=== PATIENT | female | born 1955 | race African-American/Black ===

== ENCOUNTER 2017-04-09 16:58 | Inpatient (IN) | payer OTHER ==
[~2017-04-09] VITALS: Ht 170.2 cm; Wt 131.1 kg
[2017-04-09] MEDS ORDERED: METHYLPREDNISOLONE SOD SUCC 125 MG/2 ML VIAL IV ONE (17:30)
[2017-04-09] MEDS ORDERED: IPRATROPIUM/ALBUTEROL 0.5-3(2.5)MG/3ML NEB HHN ONE (17:30)
[2017-04-09 17:49] LABS: BASOPHILS % 0.7 % (0.0-2.0); EOSINOPHILS % 2.7 % (0.0-5.0); HEMATOCRIT. 33.1 % (36.0-48.0); HEMOGLOBIN. 10.6 g/dL (12.0-16.0); LYMPHOCYTES % 28.2 % (20.0-50.0); MEAN CORPUSCULAR HEMOGLOBIN 26.7 pg (28.0-32.0); MEAN CORPUSCULAR VOLUME 83.4 fL (81.0-99.0); MEAN PLATELET VOLUME 11.1 fl (7.4-10.4); MONOCYTES % 12.2 % (2.0-8.0); NEUTROPHILS % 56.2 % (40.0-76.0); PLATELET 156 x1000/uL (130-400); RED BLOOD CELL COUNT 3.97 mill/uL (4.2-5.4); RED CELL DISTRIBUTION WIDTH 15.2 % (11.6-14.6)
[2017-04-09 18:00] LABS: PARTIAL THROMBOPLASTIN TIME 27.8 sec (24.0-34.0); PROTHROMBIN TIME 10.6 sec
[2017-04-09 18:06] LABS: CARBON DIOXIDE 28 mEq/L (21-32); CHLORIDE 111 mEq/L (98-107); TROPONIN I < 0.02 ng/mL (0.00-0.04)
[2017-04-09] MEDS ORDERED: DEXTROSE 50% WATER 50ML SYRINGE IV ONE ×2 (18:19→19:15)
[2017-04-09] MEDS ORDERED: FUROSEMIDE 40MG/4ML VIAL IVP ONE (19:15)
[2017-04-09] MEDS ORDERED: DOCUSATE SODIUM 100MG CAPSULE PO PRN (21:00)
[2017-04-09] MEDS ORDERED: IPRATROPIUM/ALBUTEROL 0.5-3(2.5)MG/3ML NEB INH PRN (21:00)
[2017-04-09] MEDS ORDERED: ONDANSETRON HCL 4MG/2ML VIAL IV PRN (21:00)
[2017-04-09] MEDS ORDERED: ACETAMINOPHEN 325MG TABLET PO PRN (21:00)
[2017-04-09] MEDS ORDERED: CLONIDINE 0.1MG TABLET PO PRN (21:00)
[2017-04-09] MEDS ORDERED: DEXTROSE 50% WATER 50ML SYRINGE IV PRN (21:00)
[2017-04-09] MEDS ORDERED: MAGNESIUM/ALUMINUM HYDROXIDE/SIMETHICONE 30ML UDC PO PRN (21:00)
[2017-04-09 21:30] VITALS: BP 145/91
[2017-04-09] MEDS: ENOXAPARIN 40MG/0.4ML SYR SUBCUT SCH (21:46)
[2017-04-09 22:18] VITALS: BP 145/91
[2017-04-09 22:51] LABS: CARBON DIOXIDE 29 mEq/L (21-32); CHLORIDE 108 mEq/L (98-107); CREATINE KINASE 170 IU/L (26-192); CREATINE KINASE MB FRACTION 2.3 ng/mL (0.5-3.6); TROPONIN I < 0.02 ng/mL (0.00-0.04)
[2017-04-09] MEDS ORDERED: ALPRAZOLAM 0.25 MG TABLET PO PRN (23:00)
[2017-04-09 23:11] LABS: BG CARBOXYHEMOGLOBIN 0.6 % (0.5-1.5); BG DEOXYHEMOGLOBIN 2.9 % (0.0-5.0); BG FRACTION INSPIRED OXYGEN 32; BG HCO3 ACT 24.6 mmol/L (22.0-26.0); BG METHEMOGLOBIN 0.3 % (0.0-1.5); BG OXYGEN SATURATION 97.1 % (92.0-98.5); BG OXYHEMOGLOBIN 96.2 % (94.0-97.0); BG PCO2 44.2 mmHg (35.0-45.0); BG PH 7.363 (7.350-7.450); BG PO2 100.1 mmHg (75.0-100.0); BG SAMPLE SITE RIGHT RADIAL; BG TOTAL HEMOGLOBIN 12.1 g/dL (12.0-18.0); BG VENT MODE NASAL CANNULA
[2017-04-09] MEDS: HYDROCODONE/ACETAMINOPHEN 5/325MG TABLET PO PRN (23:18)
[2017-04-09 23:39] LABS: CLARITY URINE CLEAR (CLEAR); COLOR URINE YELLOW (YELLOW); GLUCOSE URINE NEGATIVE (NEGATIVE); KETONES URINE NEGATIVE (NEGATIVE); LEUKOCYTE ESTERASE URINE 2+ (NEGATIVE); NITRITE URINE NEGATIVE (NEGATIVE); OCCULT BLOOD URINE NEGATIVE (NEGATIVE); PH URINE 5.5 (4.5-8.0); PROTEIN URINE NEGATIVE (NEGATIVE); SPECIFIC GRAVITY URINE 1.022 (1.005-1.030)
[2017-04-10] VITALS: BP 118/68
[2017-04-10 00:17] LABS: *AMPHETAMINES SCREEN URINE NEGATIVE (NEGATIVE); *BARBITURATES SCREEN URINE NEGATIVE (NEGATIVE); *BENZODIAZEPINES SCREEN URINE NEGATIVE (NEGATIVE); *COCAINE SCREEN URINE NEGATIVE (NEGATIVE); CANNABINOID URINE SCREEN NEGATIVE (NEGATIVE); METHADONE URINE SCREEN NEGATIVE (NEGATIVE); OPIATES URINE SCREEN PRESUMTIVE POSITIVE (NEGATIVE); PHENCYCLIDINE URINE SCREEN NEGATIVE (NEGATIVE)
[2017-04-10] MEDS: ZOLPIDEM TARTRATE 5MG TABLET PO PRN ×2 (01:35→21:38)
[2017-04-10] MEDS: METHYLPREDNISOLONE SOD SUCC 125 MG/2 ML VIAL IV SCH ×2 (01:35→10:00)
[2017-04-10 04:00] VITALS: BP 109/68
[2017-04-10 06:39] LABS: BASOPHILS % 0.1 % (0.0-2.0); HEMATOCRIT. 33.4 % (36.0-48.0); HEMOGLOBIN. 10.8 g/dL (12.0-16.0); LYMPHOCYTES % 8.8 % (20.0-50.0); MEAN CORPUSCULAR HEMOGLOBIN 27.1 pg (28.0-32.0); MEAN CORPUSCULAR VOLUME 83.7 fL (81.0-99.0); MEAN PLATELET VOLUME 10.8 fl (7.4-10.4); MONOCYTES % 1.9 % (2.0-8.0); NEUTROPHILS % 89.2 % (40.0-76.0); PLATELET 144 x1000/uL (130-400); RED BLOOD CELL COUNT 3.99 mill/uL (4.2-5.4); RED CELL DISTRIBUTION WIDTH 14.9 % (11.6-14.6)
[2017-04-10] MEDS: FUROSEMIDE 40MG/4ML VIAL IV SCH ×2 (07:03→17:38)
[2017-04-10 07:56] LABS: CREATINE KINASE 159 IU/L (26-192); CREATINE KINASE MB FRACTION 2.4 ng/mL (0.5-3.6); HDL CHOLESTEROL 85 mg/dL (40-59); LDL CHOLESTEROL 58 mg/dL (5-100); TROPONIN I < 0.02 ng/mL (0.00-0.04)
[2017-04-10] MEDS: ENOXAPARIN 40MG/0.4ML SYR SUBCUT SCH (08:27)
[2017-04-10 09:02] VITALS: BP 128/66
[2017-04-10 12:00] VITALS: BP 137/81
[2017-04-10] MEDS: HYDROCODONE/ACETAMINOPHEN 5/325MG TABLET PO PRN (13:53)
[2017-04-10] MEDS ORDERED: DEXTROSE 50% WATER 50ML SYRINGE IV PRN (14:00)
[2017-04-10 16:00] VITALS: BP 129/67
[2017-04-10] MEDS: CEFTRIAXONE 1 G PREMIX 50 ML IV SCH (16:51)
[2017-04-10] MEDS: METHYLPREDNISOLONE SOD SUCC 40 MG/ML VIAL IV SCH ×2 (17:07→23:30)
[2017-04-10] MEDS: BLOOD SUGAR DIAGNOSTIC STRIP TEST SCH ×2 (17:10→21:39)
[2017-04-10] MEDS: METFORMIN HCL 500MG TABLET PO SCH (17:37)
[2017-04-10] MEDS: INSULIN LISPRO 100 UNITS/ML SUBCUT SCH ×2 (17:40→21:50)
[2017-04-10 20:00] VITALS: BP 120/73
[2017-04-10] MEDS: BUDESONIDE 0.5MG/2ML NEB HHN SCH (20:44)
[2017-04-10] MEDS: IPRATROPIUM/ALBUTEROL 0.5-3(2.5)MG/3ML NEB HHN SCH (20:45)
[2017-04-10] MEDS: FLUTICASONE PROPIONATE 50MCG/SPRAY BOTTLE BOTHNSTRLS SCH (21:37)
[2017-04-10] MEDS: VERAPAMIL HCL 40MG TABLET PO SCH (21:38)
[2017-04-10] MEDS: ENOXAPARIN 30MG/0.3ML SYR SUBCUT SCH (21:42)
[2017-04-11] VITALS: BP 118/51
[2017-04-11] MEDS: IPRATROPIUM/ALBUTEROL 0.5-3(2.5)MG/3ML NEB HHN SCH ×4 (01:27→21:05)
[2017-04-11 04:00] VITALS: BP 127/71
[2017-04-11] MEDS: BLOOD SUGAR DIAGNOSTIC STRIP TEST SCH ×4 (05:55→21:01)
[2017-04-11] MEDS: INSULIN LISPRO 100 UNITS/ML SUBCUT SCH ×4 (06:02→21:04)
[2017-04-11] MEDS: VERAPAMIL HCL 40MG TABLET PO SCH ×3 (06:03→21:02)
[2017-04-11] MEDS: METFORMIN HCL 500MG TABLET PO SCH ×2 (06:03→17:47)
[2017-04-11] MEDS: FUROSEMIDE 40MG/4ML VIAL IV SCH ×2 (06:04→17:47)
[2017-04-11 06:20] LABS: BASOPHILS % 0.3 % (0.0-2.0); HEMATOCRIT. 35.3 % (36.0-48.0); HEMOGLOBIN. 11.3 g/dL (12.0-16.0); LYMPHOCYTES % 8.6 % (20.0-50.0); MEAN CORPUSCULAR HEMOGLOBIN 26.6 pg (28.0-32.0); MEAN PLATELET VOLUME 11.7 fl (7.4-10.4); MONOCYTES % 3.1 % (2.0-8.0); PLATELET 146 x1000/uL (130-400); RED BLOOD CELL COUNT 4.25 mill/uL (4.2-5.4); RED CELL DISTRIBUTION WIDTH 14.7 % (11.6-14.6)
[2017-04-11 08:00] VITALS: BP 117/68
[2017-04-11] MEDS: METHYLPREDNISOLONE SOD SUCC 40 MG/ML VIAL IV SCH (08:39)
[2017-04-11] MEDS: PANTOPRAZOLE SODIUM 40 MG/VIAL IV SCH (08:39)
[2017-04-11] MEDS: TRIAMTERENE/HYDROCHLOROTHIAZIDE 37.5/25MG CAPSULE PO SCH (08:39)
[2017-04-11] MEDS: FLUTICASONE PROPIONATE 50MCG/SPRAY BOTTLE BOTHNSTRLS SCH ×2 (08:40→20:57)
[2017-04-11] MEDS: ENOXAPARIN 30MG/0.3ML SYR SUBCUT SCH ×2 (08:40→20:58)
[2017-04-11] MEDS: HYDROCODONE/ACETAMINOPHEN 5/325MG TABLET PO PRN (09:35)
[2017-04-11 12:00] VITALS: BP 107/57
[2017-04-11] MEDS: CEFTRIAXONE 1 G PREMIX 50 ML IV SCH (15:27)
[2017-04-11 16:00] VITALS: BP 118/62
[2017-04-11] MEDS: PREDNISONE 20MG TABLET PO SCH (17:47)
[2017-04-11 20:00] VITALS: BP 129/72
[2017-04-11] MEDS: BUDESONIDE 0.5MG/2ML NEB HHN SCH (21:05)
[2017-04-11] MEDS: INSULIN DETEMIR UD 100 UNITS/ML SYR SUBCUT SCH (21:42)
[2017-04-12] VITALS: BP 139/69
[2017-04-12] MEDS: IPRATROPIUM/ALBUTEROL 0.5-3(2.5)MG/3ML NEB HHN SCH ×4 (01:55→20:57)
[2017-04-12 04:00] VITALS: BP 137/73
[2017-04-12] MEDS: VERAPAMIL HCL 40MG TABLET PO SCH ×3 (05:56→21:13)
[2017-04-12] MEDS: FUROSEMIDE 40MG/4ML VIAL IV SCH ×2 (06:32→17:26)
[2017-04-12] MEDS: BLOOD SUGAR DIAGNOSTIC STRIP TEST SCH ×4 (06:32→20:23)
[2017-04-12 06:46] LABS: BASOPHILS % 0.2 % (0.0-2.0); HEMATOCRIT. 36.9 % (36.0-48.0); HEMOGLOBIN. 11.8 g/dL (12.0-16.0); LYMPHOCYTES % 8.6 % (20.0-50.0); MEAN CORPUSCULAR HEMOGLOBIN 26.6 pg (28.0-32.0); MEAN CORPUSCULAR VOLUME 83.3 fL (81.0-99.0); MEAN PLATELET VOLUME 11.4 fl (7.4-10.4); MONOCYTES % 5.8 % (2.0-8.0); NEUTROPHILS % 85.4 % (40.0-76.0); PLATELET 159 x1000/uL (130-400); RED BLOOD CELL COUNT 4.42 mill/uL (4.2-5.4); RED CELL DISTRIBUTION WIDTH 14.8 % (11.6-14.6)
[2017-04-12] MEDS: INSULIN LISPRO 100 UNITS/ML SUBCUT SCH ×4 (06:58→20:35)
[2017-04-12] MEDS: METFORMIN HCL 500MG TABLET PO SCH ×2 (07:32→17:26)
[2017-04-12 08:00] VITALS: BP 129/66
[2017-04-12] MEDS: BUDESONIDE 0.5MG/2ML NEB HHN SCH ×2 (08:13→20:57)
[2017-04-12] MEDS: PREDNISONE 20MG TABLET PO SCH (08:13)
[2017-04-12] MEDS: PANTOPRAZOLE SODIUM 40 MG/VIAL IV SCH (08:13)
[2017-04-12] MEDS: TRIAMTERENE/HYDROCHLOROTHIAZIDE 37.5/25MG CAPSULE PO SCH (08:13)
[2017-04-12] MEDS: ENOXAPARIN 30MG/0.3ML SYR SUBCUT SCH (08:14)
[2017-04-12] MEDS: FLUTICASONE PROPIONATE 50MCG/SPRAY BOTTLE BOTHNSTRLS SCH ×2 (08:15→20:35)
[2017-04-12] MEDS: HYDROCODONE/ACETAMINOPHEN 5/325MG TABLET PO PRN ×2 (10:12→20:23)
[2017-04-12] MEDS: INSULIN DETEMIR UD 100 UNITS/ML SYR SUBCUT SCH ×2 (10:26→21:17)
[2017-04-12 12:00] VITALS: BP 105/63
[2017-04-12] MEDS: FAMOTIDINE 20MG TABLET PO SCH ×2 (12:11→20:17)
[2017-04-12] MEDS: CEFTRIAXONE 1 G PREMIX 50 ML IV SCH (15:58)
[2017-04-12 16:00] VITALS: BP 136/85
[2017-04-12 20:00] VITALS: BP 129/76
[2017-04-12] MEDS: GUAIFENESIN/CODEINE 100-10MG/5ML UDC PO PRN (20:18)
[2017-04-12] MEDS: ENOXAPARIN 40MG/0.4ML SYR SUBCUT SCH (20:18)
[2017-04-13] VITALS: BP 121/67
[2017-04-13] MEDS: IPRATROPIUM/ALBUTEROL 0.5-3(2.5)MG/3ML NEB HHN SCH ×3 (01:19→14:49)
[2017-04-13] MEDS: HYDROCODONE/ACETAMINOPHEN 5/325MG TABLET PO PRN ×3 (01:25→10:01)
[2017-04-13 04:00] VITALS: BP 130/80
[2017-04-13] MEDS: GUAIFENESIN/CODEINE 100-10MG/5ML UDC PO PRN (05:43)
[2017-04-13] MEDS: VERAPAMIL HCL 40MG TABLET PO SCH ×2 (05:44→13:56)
[2017-04-13] MEDS: FUROSEMIDE 40MG/4ML VIAL IV SCH (06:06)
[2017-04-13] MEDS: BLOOD SUGAR DIAGNOSTIC STRIP TEST SCH ×2 (06:06→11:29)
[2017-04-13] MEDS: INSULIN LISPRO 100 UNITS/ML SUBCUT SCH ×2 (06:16→12:10)
[2017-04-13 06:35] LABS: BASOPHILS % 0.5 % (0.0-2.0); EOSINOPHILS % 0.1 % (0.0-5.0); HEMATOCRIT. 39.1 % (36.0-48.0); HEMOGLOBIN. 12.7 g/dL (12.0-16.0); LYMPHOCYTES % 23.3 % (20.0-50.0); MEAN CORPUSCULAR HEMOGLOBIN 26.8 pg (28.0-32.0); MEAN CORPUSCULAR VOLUME 82.3 fL (81.0-99.0); MEAN PLATELET VOLUME 11.3 fl (7.4-10.4); MONOCYTES % 11.6 % (2.0-8.0); NEUTROPHILS % 64.5 % (40.0-76.0); PLATELET 174 x1000/uL (130-400); RED BLOOD CELL COUNT 4.75 mill/uL (4.2-5.4); RED CELL DISTRIBUTION WIDTH 14.5 % (11.6-14.6)
[2017-04-13] MEDS: METFORMIN HCL 500MG TABLET PO SCH (07:50)
[2017-04-13 08:00] VITALS: BP 111/62
[2017-04-13] MEDS ORDERED: PREDNISONE 20MG TABLET PO SCH (09:00)
[2017-04-13] MEDS: BUDESONIDE 0.5MG/2ML NEB HHN SCH (09:08)
[2017-04-13] MEDS: FLUTICASONE PROPIONATE 50MCG/SPRAY BOTTLE BOTHNSTRLS SCH (09:16)
[2017-04-13] MEDS: TRIAMTERENE/HYDROCHLOROTHIAZIDE 37.5/25MG CAPSULE PO SCH (09:17)
[2017-04-13] MEDS: ENOXAPARIN 40MG/0.4ML SYR SUBCUT SCH (09:17)
[2017-04-13] MEDS: FAMOTIDINE 20MG TABLET PO SCH (09:17)
[2017-04-13] MEDS: INSULIN DETEMIR UD 100 UNITS/ML SYR SUBCUT SCH (10:00)
[2017-04-13 12:03] VITALS: BP 118/70
[2017-04-13 15:28] VITALS: BP 118/70
[2017-04-13] MEDS: CEFTRIAXONE 1 G PREMIX 50 ML IV SCH (15:30)
[2017-04-13 16:00] VITALS: BP 126/74
== END 2017-04-13 18:23 | disposition home or self-care (01) | DRG 720 ==
LOC: ER 16:58 → 5WST 19:53 → ENRESERV 20:09
PROVIDERS: ADMIT Internal Medicine; ATTEND Internal Medicine
PROC: 5A09357 Assistance with Respiratory Ventilation, Less than 24 Consecutive Hours, Continuous Positive Airway Pressure (ICD-10-PCS; principal; 2017-04-10)
DX: A41.9 Sepsis, unspecified organism (principal); J96.00 Acute respiratory failure, unspecified whether with hypoxia or hypercapnia; I50.33 Acute on chronic diastolic (congestive) heart failure; E11.649 Type 2 diabetes mellitus with hypoglycemia without coma; E44.1 Mild protein-calorie malnutrition; I24.9 Acute ischemic heart disease, unspecified; J44.1 Chronic obstructive pulmonary disease with (acute) exacerbation; E66.01 Morbid (severe) obesity due to excess calories; D64.9 Anemia, unspecified; E78.5 Hyperlipidemia, unspecified; F41.9 Anxiety disorder, unspecified; G47.33 Obstructive sleep apnea (adult) (pediatric); G89.29 Other chronic pain; J32.9 Chronic sinusitis, unspecified; K21.9 Gastro-esophageal reflux disease without esophagitis; N39.0 Urinary tract infection, site not specified; W19.XXXA Unspecified fall, initial encounter; Z87.891 Personal history of nicotine dependence; Z88.2 Allergy status to sulfonamides; Z68.42 Body mass index [BMI] 45.0-49.9, adult; Y93.89 Activity, other specified; Y92.091 Bathroom in other non-institutional residence as the place of occurrence of the external cause; Y99.8 Other external cause status
CPT/HCPCS: 36415; 36600; 70450; 71010; 80048; 80053; 80061; 80305; 81001; 82375; 82550; 82553; 82805; 82962; 83036; 83690; 83735; 83880; 84443; 84484; 85025; 85379; 85610; 85730; 87086; 93005; 93306; 93970; 94640; 94660; 94664; 96374; 97162; 97530; 99285; C1893; C9113; J0696; J1650; J1815; J1940; J2405; J2920; J2930; J7050; J7512; J7620; J7626; A4315

== ENCOUNTER 2017-04-27 09:54 | Inpatient (IN) | payer OTHER ==
[~2017-04-27] VITALS: Ht 154.9 cm; Wt 141.5 kg
[2017-04-27] MEDS ORDERED: SODIUM CHLORIDE 0.9% 1,000 ML IV ONE (10:18)
[2017-04-27] MEDS ORDERED: DEXTROSE 50% WATER 50ML SYRINGE IV ONE ×2 (10:41→12:30)
[2017-04-27 10:45] LABS: BASOPHILS % 0.3 % (0.0-2.0); EOSINOPHILS % 0.8 % (0.0-5.0); HEMATOCRIT. 35.8 % (36.0-48.0); LYMPHOCYTES % 16.1 % (20.0-50.0); MEAN CORPUSCULAR HEMOGLOBIN 26.4 pg (28.0-32.0); MEAN CORPUSCULAR VOLUME 85.9 fL (81.0-99.0); MEAN PLATELET VOLUME 10.1 fl (7.4-10.4); MONOCYTES % 8.6 % (2.0-8.0); NEUTROPHILS % 74.2 % (40.0-76.0); PLATELET 131 x1000/uL (130-400); RED BLOOD CELL COUNT 4.16 mill/uL (4.2-5.4); RED CELL DISTRIBUTION WIDTH 15.6 % (11.6-14.6)
[2017-04-27 10:53] LABS: PROTHROMBIN TIME 10.8 sec
[2017-04-27 10:56] LABS: CHLORIDE 109 mEq/L (98-107)
[2017-04-27 11:02] LABS: CARBON DIOXIDE 26 mEq/L (21-32); TROPONIN I < 0.02 ng/mL (0.00-0.04)
[2017-04-27 11:24] LABS: BG BASE EXCESS -0.1 mmol/L (-2.0-2.0); BG CARBOXYHEMOGLOBIN 0.2 % (0.5-1.5); BG DEOXYHEMOGLOBIN 5.9 % (0.0-5.0); BG HCO3 ACT 27.4 mmol/L (22.0-26.0); BG METHEMOGLOBIN 0.4 % (0.0-1.5); BG OXYGEN SATURATION 94.1 % (92.0-98.5); BG OXYHEMOGLOBIN 93.5 % (94.0-97.0); BG PCO2 57.2 mmHg (35.0-45.0); BG PH 7.298 (7.350-7.450); BG PO2 77.3 mmHg (75.0-100.0); BG SAMPLE SITE RIGHT RADIAL; BG TOTAL HEMOGLOBIN 12.8 g/dL (12.0-18.0); BG VENT MODE ROOM AIR
[2017-04-27] MEDS ORDERED: DEXTROSE 50% WATER 50ML SYRINGE IV PRN ×2 (12:30→17:15)
[2017-04-27] MEDS ORDERED: BUDESONIDE 0.5MG/2ML NEB HHN SCH (14:45)
[2017-04-27] MEDS ORDERED: MAGNESIUM/ALUMINUM HYDROXIDE/SIMETHICONE 30ML UDC PO PRN (14:45)
[2017-04-27] MEDS ORDERED: DOCUSATE SODIUM 100MG CAPSULE PO PRN (14:45)
[2017-04-27] MEDS ORDERED: ACETAMINOPHEN 325MG TABLET PO PRN (14:45)
[2017-04-27] MEDS ORDERED: CLONIDINE 0.1MG TABLET PO PRN (14:45)
[2017-04-27] MEDS ORDERED: IPRATROPIUM/ALBUTEROL 0.5-3(2.5)MG/3ML NEB INH PRN (14:45)
[2017-04-27] MEDS ORDERED: ONDANSETRON HCL 4MG/2ML VIAL IV PRN (14:45)
[2017-04-27 17:23] VITALS: BP 120/70
[2017-04-27 18:05] VITALS: BP 110/62
[2017-04-27] MEDS: INSULIN LISPRO 100 UNITS/ML SUBCUT SCH ×2 (18:15→22:51)
[2017-04-27 20:00] VITALS: BP 111/53
[2017-04-27] MEDS: IPRATROPIUM/ALBUTEROL 0.5-3(2.5)MG/3ML NEB HHN SCH ×2 (20:15→23:52)
[2017-04-27] MEDS: BLOOD SUGAR DIAGNOSTIC STRIP TEST SCH (21:00)
[2017-04-27 22:00] VITALS: BP 107/65
[2017-04-27] MEDS: ENOXAPARIN 40MG/0.4ML SYR SUBCUT SCH (22:51)
[2017-04-27 23:06] LABS: CREATINE KINASE 73 IU/L (26-192); CREATINE KINASE MB FRACTION 1.7 ng/mL (0.5-3.6); TROPONIN I < 0.02 ng/mL (0.00-0.04)
[2017-04-27] MEDS ORDERED: HYDR-3933 PO (23:27)
[2017-04-27] MEDS ORDERED: GABA-290 PO (23:27)
[2017-04-27] MEDS ORDERED: OXYB5TAB11 PO (23:27)
[2017-04-27] MEDS ORDERED: TRAZ-129 PO (23:27)
[2017-04-27] MEDS ORDERED: LORA10TA7 PO (23:27)
[2017-04-27] MEDS ORDERED: SIMV40TA5 PO (23:31)
[2017-04-27] MEDS ORDERED: ASPI-864 PO (23:31)
[2017-04-27] MEDS ORDERED: OMEP20CA10 PO (23:31)
[2017-04-27] MEDS ORDERED: SERT-112 PO (23:31)
[2017-04-27] MEDS ORDERED: POTA10CA42 PO (23:31)
[2017-04-27] MEDS ORDERED: FURO20TA4 PO (23:32)
[2017-04-28] VITALS (12 sets, daily range): BP systolic 104–154; BP diastolic 54–79
[2017-04-28] MEDS: HYDROCODONE/ACETAMINOPHEN 5/325MG TABLET PO PRN ×5 (00:35→22:28)
[2017-04-28 06:26] LABS: BASOPHILS % 0.4 % (0.0-2.0); EOSINOPHILS % 1.4 % (0.0-5.0); HEMATOCRIT. 32.2 % (36.0-48.0); HEMOGLOBIN. 10.3 g/dL (12.0-16.0); LYMPHOCYTES % 22.7 % (20.0-50.0); MEAN CORPUSCULAR HEMOGLOBIN 26.7 pg (28.0-32.0); MEAN CORPUSCULAR VOLUME 83.8 fL (81.0-99.0); MEAN PLATELET VOLUME 10.2 fl (7.4-10.4); MONOCYTES % 8.9 % (2.0-8.0); NEUTROPHILS % 66.6 % (40.0-76.0); PLATELET 141 x1000/uL (130-400); RED BLOOD CELL COUNT 3.84 mill/uL (4.2-5.4); RED CELL DISTRIBUTION WIDTH 15.1 % (11.6-14.6)
[2017-04-28 06:45] LABS: CREATINE KINASE 71 IU/L (26-192); CREATINE KINASE MB FRACTION 1.2 ng/mL (0.5-3.6); HDL CHOLESTEROL 74 mg/dL (40-59); LDL CHOLESTEROL 54 mg/dL (5-100); TROPONIN I < 0.02 ng/mL (0.00-0.04)
[2017-04-28] MEDS: BLOOD SUGAR DIAGNOSTIC STRIP TEST SCH ×4 (07:30→21:59)
[2017-04-28] MEDS: IPRATROPIUM/ALBUTEROL 0.5-3(2.5)MG/3ML NEB HHN SCH ×3 (08:42→20:39)
[2017-04-28] MEDS ORDERED: MEDICATION NOT ON FORMULARY EA (Gabapentin 1 TAB) PO SCH (09:00)
[2017-04-28] MEDS ORDERED: MEDICATION NOT ON FORMULARY EA (Potassium Chloride 1 CAP) PO SCH (09:00)
[2017-04-28] MEDS: ASPIRIN 81MG EC TABLET PO SCH (10:08)
[2017-04-28] MEDS: GABAPENTIN 300MG CAPSULE PO SCH ×3 (10:08→18:09)
[2017-04-28] MEDS: FUROSEMIDE 20MG TABLET PO SCH (10:09)
[2017-04-28] MEDS: OMEPRAZOLE 20MG CAPSULE EXTENDED RELEASE PO SCH ×2 (10:09→18:09)
[2017-04-28] MEDS: SERTRALINE HCL 100MG TABLET PO SCH (10:09)
[2017-04-28] MEDS: LORATADINE 10MG TABLET PO SCH (10:09)
[2017-04-28] MEDS: POTASSIUM CHLORIDE 10MEQ TABLET SR PO SCH (10:09)
[2017-04-28] MEDS: ENOXAPARIN 40MG/0.4ML SYR SUBCUT SCH ×2 (10:11→21:59)
[2017-04-28] MEDS: INSULIN LISPRO 100 UNITS/ML SUBCUT SCH ×4 (10:15→21:58)
[2017-04-28] MEDS ORDERED: DIATR MEGLU/DIATRIZOATE SOLN 30ML PO NR (15:00)
[2017-04-28 16:30] LABS: CLARITY URINE CLEAR (CLEAR); COLOR URINE YELLOW (YELLOW); GLUCOSE URINE NEGATIVE (NEGATIVE); KETONES URINE NEGATIVE (NEGATIVE); LEUKOCYTE ESTERASE URINE 1+ (NEGATIVE); NITRITE URINE NEGATIVE (NEGATIVE); OCCULT BLOOD URINE 2+ (NEGATIVE); PROTEIN URINE NEGATIVE (NEGATIVE); SPECIFIC GRAVITY URINE 1.018 (1.005-1.030); UROBILINOGEN URINE 0.2 E.U./dL (0.2-1.0)
[2017-04-28 16:43] LABS: *AMPHETAMINES SCREEN URINE NEGATIVE (NEGATIVE); *BARBITURATES SCREEN URINE NEGATIVE (NEGATIVE); *BENZODIAZEPINES SCREEN URINE NEGATIVE (NEGATIVE); *COCAINE SCREEN URINE NEGATIVE (NEGATIVE); CANNABINOID URINE SCREEN NEGATIVE (NEGATIVE); METHADONE URINE SCREEN NEGATIVE (NEGATIVE); OPIATES URINE SCREEN PRESUMTIVE POSITIVE (NEGATIVE); PHENCYCLIDINE URINE SCREEN NEGATIVE (NEGATIVE)
[2017-04-28] MEDS ORDERED: MEDICATION NOT ON FORMULARY EA (Simvastatin 1 TAB) PO SCH (17:00)
[2017-04-28] MEDS ORDERED: TRAZODONE HCL 50MG TABLET PO SCH (17:00)
[2017-04-28] MEDS: BUDESONIDE 0.5MG/2ML NEB HHN SCH (20:39)
[2017-04-28] MEDS: ATORVASTATIN CALCIUM 20MG TABLET PO SCH (21:58)
[2017-04-28] MEDS: OXYBUTYNIN CHLORIDE 5MG TABLET PO SCH (21:58)
[2017-04-28] MEDS: TRAZODONE HCL 50MG TABLET PO SCH (21:58)
[2017-04-29] VITALS (11 sets, daily range): BP systolic 101–145; BP diastolic 42–91
[2017-04-29] MEDS: IPRATROPIUM/ALBUTEROL 0.5-3(2.5)MG/3ML NEB HHN SCH ×4 (01:06→20:34)
[2017-04-29] MEDS: HYDROCODONE/ACETAMINOPHEN 5/325MG TABLET PO PRN ×2 (05:17→10:05)
[2017-04-29 06:55] LABS: BASOPHILS % 0.6 % (0.0-2.0); EOSINOPHILS % 1.6 % (0.0-5.0); HEMATOCRIT. 33.8 % (36.0-48.0); HEMOGLOBIN. 10.9 g/dL (12.0-16.0); LYMPHOCYTES % 25.4 % (20.0-50.0); MEAN CORPUSCULAR HEMOGLOBIN 26.9 pg (28.0-32.0); MEAN CORPUSCULAR VOLUME 83.7 fL (81.0-99.0); MEAN PLATELET VOLUME 10.8 fl (7.4-10.4); MONOCYTES % 11.4 % (2.0-8.0); PLATELET 142 x1000/uL (130-400); RED BLOOD CELL COUNT 4.04 mill/uL (4.2-5.4); RED CELL DISTRIBUTION WIDTH 15.2 % (11.6-14.6)
[2017-04-29] MEDS: BLOOD SUGAR DIAGNOSTIC STRIP TEST SCH ×4 (07:49→20:55)
[2017-04-29] MEDS: INSULIN LISPRO 100 UNITS/ML SUBCUT SCH ×4 (07:50→21:00)
[2017-04-29] MEDS: BUDESONIDE 0.5MG/2ML NEB HHN SCH ×2 (09:50→20:34)
[2017-04-29] MEDS: FUROSEMIDE 20MG TABLET PO SCH (09:53)
[2017-04-29] MEDS: GABAPENTIN 300MG CAPSULE PO SCH ×3 (09:53→17:44)
[2017-04-29] MEDS: ASPIRIN 81MG EC TABLET PO SCH (09:53)
[2017-04-29] MEDS: LORATADINE 10MG TABLET PO SCH (09:53)
[2017-04-29] MEDS: ENOXAPARIN 40MG/0.4ML SYR SUBCUT SCH ×2 (09:54→20:55)
[2017-04-29] MEDS: OMEPRAZOLE 20MG CAPSULE EXTENDED RELEASE PO SCH ×2 (09:54→17:44)
[2017-04-29] MEDS: SERTRALINE HCL 100MG TABLET PO SCH (09:59)
[2017-04-29] MEDS: POTASSIUM CHLORIDE 10MEQ TABLET SR PO SCH (09:59)
[2017-04-29] MEDS: TRAZODONE HCL 50MG TABLET PO SCH (20:55)
[2017-04-29] MEDS: ATORVASTATIN CALCIUM 20MG TABLET PO SCH (20:55)
[2017-04-29] MEDS: OXYBUTYNIN CHLORIDE 5MG TABLET PO SCH (20:55)
[2017-04-30] VITALS (10 sets, daily range): BP systolic 125–148; BP diastolic 59–90
[2017-04-30] MEDS: HYDROCODONE/ACETAMINOPHEN 5/325MG TABLET PO PRN ×3 (00:08→20:53)
[2017-04-30] MEDS: IPRATROPIUM/ALBUTEROL 0.5-3(2.5)MG/3ML NEB HHN SCH ×4 (01:33→20:10)
[2017-04-30] MEDS: BLOOD SUGAR DIAGNOSTIC STRIP TEST SCH ×4 (07:30→20:59)
[2017-04-30] MEDS: BUDESONIDE 0.5MG/2ML NEB HHN SCH ×2 (09:17→20:16)
[2017-04-30] MEDS: ENOXAPARIN 40MG/0.4ML SYR SUBCUT SCH ×2 (09:36→20:53)
[2017-04-30] MEDS: GABAPENTIN 300MG CAPSULE PO SCH ×3 (09:36→17:39)
[2017-04-30] MEDS: FUROSEMIDE 20MG TABLET PO SCH (09:36)
[2017-04-30] MEDS: ASPIRIN 81MG EC TABLET PO SCH (09:36)
[2017-04-30] MEDS: OMEPRAZOLE 20MG CAPSULE EXTENDED RELEASE PO SCH ×2 (09:37→17:39)
[2017-04-30] MEDS: LORATADINE 10MG TABLET PO SCH (09:37)
[2017-04-30] MEDS: INSULIN LISPRO 100 UNITS/ML SUBCUT SCH ×4 (09:46→20:59)
[2017-04-30] MEDS: SERTRALINE HCL 100MG TABLET PO SCH (09:46)
[2017-04-30] MEDS: POTASSIUM CHLORIDE 10MEQ TABLET SR PO SCH (11:34)
[2017-04-30] MEDS: TRAZODONE HCL 50MG TABLET PO SCH (20:52)
[2017-04-30] MEDS: ATORVASTATIN CALCIUM 20MG TABLET PO SCH (20:53)
[2017-04-30] MEDS: OXYBUTYNIN CHLORIDE 5MG TABLET PO SCH (20:53)
[2017-05-01] VITALS (12 sets, daily range): BP systolic 120–150; BP diastolic 60–82
[2017-05-01] MEDS: IPRATROPIUM/ALBUTEROL 0.5-3(2.5)MG/3ML NEB HHN SCH ×4 (01:50→21:15)
[2017-05-01] MEDS: HYDROCODONE/ACETAMINOPHEN 5/325MG TABLET PO PRN ×3 (03:42→20:31)
[2017-05-01] MEDS: BLOOD SUGAR DIAGNOSTIC STRIP TEST SCH ×4 (07:30→20:48)
[2017-05-01] MEDS: INSULIN LISPRO 100 UNITS/ML SUBCUT SCH ×4 (08:00→20:48)
[2017-05-01] MEDS: OMEPRAZOLE 20MG CAPSULE EXTENDED RELEASE PO SCH ×2 (08:17→17:20)
[2017-05-01] MEDS: GABAPENTIN 300MG CAPSULE PO SCH ×3 (08:19→17:26)
[2017-05-01] MEDS: FUROSEMIDE 20MG TABLET PO SCH (08:19)
[2017-05-01] MEDS: LORATADINE 10MG TABLET PO SCH (08:19)
[2017-05-01] MEDS: ASPIRIN 81MG EC TABLET PO SCH (08:19)
[2017-05-01] MEDS: ENOXAPARIN 40MG/0.4ML SYR SUBCUT SCH ×2 (08:20→20:31)
[2017-05-01] MEDS: SERTRALINE HCL 100MG TABLET PO SCH (08:25)
[2017-05-01] MEDS: POTASSIUM CHLORIDE 10MEQ TABLET SR PO SCH (08:25)
[2017-05-01] MEDS: BUDESONIDE 0.5MG/2ML NEB HHN SCH ×2 (09:31→21:15)
[2017-05-01] MEDS: TRAZODONE HCL 50MG TABLET PO SCH (20:30)
[2017-05-01] MEDS: OXYBUTYNIN CHLORIDE 5MG TABLET PO SCH (20:30)
[2017-05-01] MEDS: FLUTICASONE PROPIONATE 50MCG/SPRAY BOTTLE BOTHNSTRLS SCH (20:31)
[2017-05-01] MEDS: ATORVASTATIN CALCIUM 20MG TABLET PO SCH (20:31)
[2017-05-01] MEDS ORDERED: BUDESONIDE 0.5MG/2ML NEB ONE (21:21)
[2017-05-02] VITALS (12 sets, daily range): BP systolic 117–145; BP diastolic 49–109
[2017-05-02] MEDS: IPRATROPIUM/ALBUTEROL 0.5-3(2.5)MG/3ML NEB HHN SCH ×4 (01:23→21:37)
[2017-05-02] MEDS: HYDROCODONE/ACETAMINOPHEN 5/325MG TABLET PO PRN ×3 (06:05→20:48)
[2017-05-02] MEDS: BLOOD SUGAR DIAGNOSTIC STRIP TEST SCH ×4 (07:30→20:49)
[2017-05-02] MEDS: INSULIN LISPRO 100 UNITS/ML SUBCUT SCH ×4 (08:35→21:02)
[2017-05-02] MEDS: POTASSIUM CHLORIDE 10MEQ TABLET SR PO SCH (08:36)
[2017-05-02] MEDS: FUROSEMIDE 20MG TABLET PO SCH (08:36)
[2017-05-02] MEDS: LORATADINE 10MG TABLET PO SCH (08:36)
[2017-05-02] MEDS: ASPIRIN 81MG EC TABLET PO SCH (08:36)
[2017-05-02] MEDS: GABAPENTIN 300MG CAPSULE PO SCH ×3 (08:36→17:02)
[2017-05-02] MEDS: SERTRALINE HCL 100MG TABLET PO SCH (08:36)
[2017-05-02] MEDS: FLUTICASONE PROPIONATE 50MCG/SPRAY BOTTLE BOTHNSTRLS SCH ×2 (08:37→20:47)
[2017-05-02] MEDS: FAMOTIDINE 20MG TABLET PO SCH ×2 (08:37→17:02)
[2017-05-02] MEDS: ENOXAPARIN 40MG/0.4ML SYR SUBCUT SCH ×2 (08:38→20:47)
[2017-05-02] MEDS: ATORVASTATIN CALCIUM 20MG TABLET PO SCH (20:48)
[2017-05-02] MEDS: OXYBUTYNIN CHLORIDE 5MG TABLET PO SCH (20:48)
[2017-05-02] MEDS: TRAZODONE HCL 50MG TABLET PO SCH (20:48)
[2017-05-03] VITALS (9 sets, daily range): BP systolic 111–149; BP diastolic 49–80
[2017-05-03] MEDS: IPRATROPIUM/ALBUTEROL 0.5-3(2.5)MG/3ML NEB HHN SCH ×3 (00:13→14:21)
[2017-05-03] MEDS: BLOOD SUGAR DIAGNOSTIC STRIP TEST SCH ×2 (07:30→12:30)
[2017-05-03] MEDS: INSULIN LISPRO 100 UNITS/ML SUBCUT SCH ×2 (08:00→12:48)
[2017-05-03] MEDS: SERTRALINE HCL 100MG TABLET PO SCH (08:18)
[2017-05-03] MEDS: FAMOTIDINE 20MG TABLET PO SCH (08:18)
[2017-05-03] MEDS: GABAPENTIN 300MG CAPSULE PO SCH ×2 (08:18→12:48)
[2017-05-03] MEDS: FUROSEMIDE 20MG TABLET PO SCH (08:18)
[2017-05-03] MEDS: ASPIRIN 81MG EC TABLET PO SCH (08:18)
[2017-05-03] MEDS: POTASSIUM CHLORIDE 10MEQ TABLET SR PO SCH (08:18)
[2017-05-03] MEDS: LORATADINE 10MG TABLET PO SCH (08:19)
[2017-05-03] MEDS: ENOXAPARIN 40MG/0.4ML SYR SUBCUT SCH (08:19)
[2017-05-03] MEDS: FLUTICASONE PROPIONATE 50MCG/SPRAY BOTTLE BOTHNSTRLS SCH (08:30)
[2017-05-03] MEDS ORDERED: ALPRAZOLAM 0.5 MG TABLET PO PRN (10:00)
[2017-05-03] MEDS ORDERED: POTA10CA42 PO (11:23)
[2017-05-03] MEDS ORDERED: ASPI-864 PO (11:23)
[2017-05-03] MEDS ORDERED: FURO20TA4 PO (11:23)
[2017-05-03] MEDS ORDERED: SIMV40TA5 PO (11:23)
[2017-05-03] MEDS ORDERED: GABA-290 PO (11:23)
== END 2017-05-03 16:20 | disposition home or self-care (01) | DRG 420 ==
LOC: ER 10:30 → 5EST 13:02 → ENRESERV 14:26
PROVIDERS: ADMIT Internal Medicine; ATTEND Internal Medicine
PROC: 5A09457 Assistance with Respiratory Ventilation, 24-96 Consecutive Hours, Continuous Positive Airway Pressure (ICD-10-PCS; principal; 2017-04-27)
DX: E11.649 Type 2 diabetes mellitus with hypoglycemia without coma (principal); J96.02 Acute respiratory failure with hypercapnia; I50.33 Acute on chronic diastolic (congestive) heart failure; N17.9 Acute kidney failure, unspecified; J44.0 Chronic obstructive pulmonary disease with (acute) lower respiratory infection; I13.0 Hypertensive heart and chronic kidney disease with heart failure and stage 1 through stage 4 chronic kidney disease, or unspecified chronic kidney disease; J44.1 Chronic obstructive pulmonary disease with (acute) exacerbation; E11.22 Type 2 diabetes mellitus with diabetic chronic kidney disease; E66.2 Morbid (severe) obesity with alveolar hypoventilation; K42.9 Umbilical hernia without obstruction or gangrene; N18.9 Chronic kidney disease, unspecified; W19.XXXA Unspecified fall, initial encounter; K21.9 Gastro-esophageal reflux disease without esophagitis; E87.2 Acidosis; F41.9 Anxiety disorder, unspecified; J20.9 Acute bronchitis, unspecified; Z88.2 Allergy status to sulfonamides; Y93.89 Activity, other specified; Y92.009 Unspecified place in unspecified non-institutional (private) residence as the place of occurrence of the external cause; Y99.8 Other external cause status
CPT/HCPCS: 36415; 36600; 51702; 70450; 71010; 74176; 80048; 80053; 80061; 80305; 81001; 82375; 82550; 82553; 82805; 82962; 83735; 83880; 84443; 84484; 85025; 85379; 85610; 87040; 87086; 93005; 93970; 94640; 94660; 97116; 97162; 97166; 97530; 97535; 99291; J1650; J1815; J7030; J7050; J7620; J7626; Q9963; A4315